=== PATIENT | female | born 1975 | race Caucasian/White ===

== ENCOUNTER → 2018-09-01 | Outpatient (CLI) | payer BC ==
--- NOTE | 2018-09-01 09:58 | RADIOLOGY IMAGING REPORT ---
FACILITY: [facility] - [place] PATIENT NAME: Violeta Fraga : 1975 MR: [id number] V: [id number] EXAM DATE: ORDERING PHYSICIAN: CESAR BULL TECHNOLOGIST: Location[place] [facility] [place] Patient: Violeta Fraga : 1975 Visit/Account:[id number] Date of Sevice: 09/01/2018 Exam type: LUMBAR SPINE 2 OR 3 VIEW History: Low back pain, left leg pain Comparison: None. Findings: There are five nonrib-bearing lumbar-type vertebral bodies present. There is straightening of normal lumbar lordosis which can be seen with muscle spasm. There is no evidence of acute fractures or sub luxations. Tiny anterior osteophytes are seen at L3-4 and L4-5. Mild sclerotic changes are seen malu ng the inferior aspect of both SI joints. A small sclerotic density projects over the left sacral al la IMPRESSION: 1. Very mild spondylotic changes of the lumbar spine Straightening of normal lumbar lordosis which can be seen with muscle spasm Mild sclerotic changes along the inferior aspect of the SI joints which may be arthritic. Small squa tted area over the left sacral gertrude likely represents a bone island although correlation with symptom s suggestive Report Dictated By: Fauzia Baker MD at 09/01/2018 9:52 AM Report E-Signed By: Fauzia Baker MD at 09/01/2018 9:54 AM WSN:[id number]
--- NOTE | 2018-09-01 13:36 | RADIOLOGY IMAGING REPORT ---
FACILITY: [facility] PATIENT NAME: Violeta Fraga : 1975 MR: [id number] V: [id number] EXAM DATE: ORDERING PHYSICIAN: CESAR BULL TECHNOLOGIST: Location: [facility] Patient: Violeta Fraga : 1975 Visit/Account:[id number] Date of Sevice: 09/01/2018 Lumbar spine without contrast HISTORY: Low back pain ADDITIONAL HISTORY: None. TECHNIQUE: Multi-planar multi-sequence MRI lumbar without intravenous contrast. CONTRAST: None. COMPARISON: None. FINDINGS: Alignment: Normal. Marrow signal: Normal T1 and T2-weighted signal is seen. Disc signal: There is disc desiccation at L4-5, with focal area of increased T2 signal consistent wit h an annular tear. Remaining discs demonstrate normal signal. Distal thoracic cord: Unremarkable. Conus: Normal, at the superior endplate of L1. Cauda equina: Unremarkable. Disc Spaces: Lower T spine: Negative. L1-2: Spinal canal and neural foramen are patent. L2-3: Spinal canal and neural foramen are patent. L3-4: Spinal canal and neural foramen are patent. L4-5: Spinal canal and neural foramen are patent. L5-S1: L canal and neural foramen are patent. Paravertebral soft tissues: Unremarkable. Visualized abdominal and pelvic structures: Unremarkable. IMPRESSION: 1. Mild degenerative disc disease changes L4-5, with findings consistent with a focal annular tear. 2. No evidence of central canal or right or left neural foramen stenosis. Report Dictated By: Castillo Fuller at 09/01/2018 12:45 PM Report E-Signed By: Castillo Fuller at 09/01/2018 1:32 PM WSN:[email or web address]
== END ==
LOC: MRI 08:32
PROVIDERS: ATTEND Family Medicine
DX: M47.896 Other spondylosis, lumbar region (principal)
CPT/HCPCS: 72100; 72148

== ENCOUNTER → 2018-09-28 | Outpatient (CLI) | payer BC ==
--- NOTE | 2018-09-28 12:26 | RADIOLOGY IMAGING REPORT ---
FAC[place] [facility] [place] PATIENT NAME: Violeta Fraga : 1975 MR: [id number] V: [id number] EXAM DATE: ORDERING PHYSICIAN: HAILEY SALEEM TECHNOLOGIST: Location: [facility] Patient: Violeta Fraga : 1975 Visit/Account:[id number] Date of Sevice: 09/28/2018 Chest with lateral, 2 views. HISTORY: Cough, fever. COMPARISON: None. Patchy infiltrate is present in the right lung base and infrahilar region. Mild consolidation is pres ent in the lateral aspect of the right lung base. The heart and mediastinum are unremarkable. Pulmon ramy vessels are unremarkable. The lungs are otherwise clear. The pleural surfaces are unremarkable. No pneumothorax. The bones are unremarkable. IMPRESSION: Right lower lobe infiltrate consistent with pneumonia. Follow-up radiographs to resolution should be considered. The patient's provider has been paged by the Imaging Operating Room Assistant at 12:30 PM on 09/28/2018. Report Dictated By: Arsenio Emanuel MD at 09/28/2018 12:18 PM Report E-Signed By: Arsenio Emanuel MD at 09/28/2018 12:23 PM WSN:[id number]
== END ==
LOC: RAD 10:01
PROVIDERS: ATTEND Nurse Practitioner Family
DX: R05 Cough (principal); R50.9 Fever, unspecified
CPT/HCPCS: 71046

== ENCOUNTER → 2018-11-24 | Outpatient (CLI) | payer BC ==
[2018-11-24 10:12] LABS: PLATELET COUNT, AUTOMATED 229 K/uL (150-450)
[2018-11-24 10:22] LABS: INR 0.94
== END ==
LOC: LAB 09:44
DX: H35.81 Retinal edema (principal)
CPT/HCPCS: 36415; 81241; 82040; 82247; 82310; 82374; 82435; 82565; 82947; 83090; 84075; 84132; 84155; 84295; 84450; 84460; 84520; 85025; 85300; 85303; 85306; 85610; 85651; 85730; 86038; 86140; 86147; 86255; 86430